=== PATIENT | female | born 1985 ===

== ENCOUNTER → 2018-01-07 | Outpatient (CLI) | payer OTHER | LOC: LAB 15:00 → LAB SHORT 15:00 | PROVIDERS: Nurse Practitioner Family | DX: Z01.419 Encounter for gynecological examination (general) (routine) without abnormal findings (principal) | CPT/HCPCS: 87624; G0145 ==

== ENCOUNTER → 2019-02-01 | Outpatient (CLI) | payer OTHER | LOC: LAB 09:40 → LAB SHORT 09:40 | PROVIDERS: Nurse Practitioner Family | DX: Z01.419 Encounter for gynecological examination (general) (routine) without abnormal findings (principal) | CPT/HCPCS: G0145 ==

== ENCOUNTER → 2021-06-18 | Outpatient (CLI) | payer OTHER ==
[2021-06-19 15:11] LABS: HPV 16 Negative (Negative); HPV 18 Negative (Negative); HPV OTHER HR TYPES Negative (Negative)
== END | disposition home or self-care (01) ==
LOC: LAB SHORT 14:09 → LAB 14:09
PROVIDERS: Obstetrics & Gynecology
DX: Z01.419 Encounter for gynecological examination (general) (routine) without abnormal findings (principal)

== ENCOUNTER → 2021-07-14 | Outpatient (CLI) | payer OTHER ==
[2021-07-16 20:06] LABS: CORONAVIRUS (COVID19) CSH-NRL Positive (Negative)
== END | disposition home or self-care (01) ==
LOC: LAB SHORT 16:18
PROVIDERS: Physician Assistant Medical
DX: Z20.822 Contact with and (suspected) exposure to COVID-19 (principal)
CPT/HCPCS: U0003

== ENCOUNTER → 2021-10-17 | Outpatient (CLI) | payer OTHER ==
[2021-10-18 13:00] LABS: Candida species (DNA Probe) Negative (NEGATIVE); G. vaginalis (DNA Probe) Positive (NEGATIVE); T. vaginalis (DNA Probe) Negative (NEGATIVE)
[2021-10-19 05:11] LABS: CHLAMYDIA TRACHOMATIS, NAA Negative (Negative)
== END | disposition home or self-care (01) ==
LOC: LAB SHORT 16:47 → LAB 16:47
PROVIDERS: Physician Assistant
DX: N94.10 Unspecified dyspareunia (principal)
CPT/HCPCS: 87480; 87491; 87510; 87591; 87660

== ENCOUNTER 2022-07-24 17:52 | Inpatient (IN) | payer OTHER ==
[~2022-07-24] VITALS: Ht 162.6 cm; Wt 56.8 kg
[2022-07-24 19:04] LABS: BASOPHILS ABSOLUTE AUTO 0.03 K/mm3 (0.00-0.23); BASOPHILS PERCENT AUTO 0 % (0-2); EOSINOPHILS ABSOLUTE AUTO 0.09 K/mm3 (0.00-0.68); EOSINOPHILS PERCENT AUTO 1 % (0-6); Hematocrit 37.7 % (33.0-51.0); Hemoglobin 13.5 g/dL (11.5-16.0); IMMATURE GRAN ABSOLUTE AUTO 0.06 K/mm3 (0.00-0.10); IMMATURE GRAN PERCENT AUTO 1 % (0-1); LYMPHOCYTES ABSOLUTE AUTO 1.27 K/mm3 (0.84-5.20); LYMPHOCYTES PERCENT AUTO 17 % (21-46); MONOCYTES ABSOLUTE AUTO 0.53 K/mm3 (0.16-1.47); MONOCYTES PERCENT AUTO 7 % (4-13); Mean Corpuscular HGB 31.8 pg (26.0-34.0); Mean Corpuscular HGB Conc 35.8 g/dL (31.5-36.5); Mean Corpuscular Volume 89 fL (80-100); Mean Platelet Volume 12.7 fL (9.1-12.4); NEUTROPHILS ABSOLUTE AUTO 5.45 K/mm3 (1.96-9.15); NEUTROPHILS PERCENT AUTO 73 % (41-73); Platelet Count 169 K/mm3 (150-400); RDW Coefficient Variation 12.6 % (11.7-14.2); Red Blood Cell Count 4.25 M/mm3 (3.80-5.20); White Blood Cell Count 7.43 K/mm3 (4.00-11.30)
[2022-07-24] MEDS ORDERED: METF500C PO (22:43)
[2022-07-24] MEDS ORDERED: PRENATAL TABLE1 EAC2 PO (22:43)
[2022-07-25 09:15] LABS: Albumin, Blood 2.4 g/dL (3.4-5.0); Albumin/Globulin Ratio 0.6 (0.8-1.8); Bilirubin, Total 0.3 mg/dL (0.1-1.0); Calcium, Blood 8.8 mg/dL (8.5-10.1); Creatinine, Blood 0.65 mg/dL (0.40-1.00); Globulin, Blood 3.9 g/dL (2.2-4.0); Potassium, Blood 3.9 mmol/L (3.5-5.5); Total Protein, Blood 6.3 g/dL (6.4-8.2)
[2022-07-25 10:46] LABS: Protein, Urine Random 150.1 mg/dL (0.0-11.9); Protein/Creat Ratio, Ur Random 1.1
[2022-07-26 14:29] LABS: pH Cord - Arterial 7.23 (7.28-7.35)
[2022-07-26 14:30] LABS: PCO2 Cord - Arterial 50.8 mmHg (40-50); PO2 Cord - Arterial 21.3 mmHg (16-20)
[2022-07-26 14:31] LABS: PCO2 Cord - Venous 49.8 mmHg (40-50); PO2 Cord - Venous 22.3 mmHg (28-32); pH Umbilical Cord - Venous 7.26 (7.26-7.35)
--- NOTE | 2022-07-26 14:44 | NUR ---
07/26/22 1444 Nirmala Gaxiola VIABLE BABY BOY BORN AT 1359
[2022-07-26 16:03] LABS: BASOPHILS ABSOLUTE AUTO 0.04 K/mm3 (0.00-0.23); BASOPHILS PERCENT AUTO 0 % (0-2); EOSINOPHILS PERCENT AUTO 0 % (0-6); Hematocrit 33.2 % (33.0-51.0); Hemoglobin 11.3 g/dL (11.5-16.0); IMMATURE GRAN ABSOLUTE AUTO 0.08 K/mm3 (0.00-0.10); IMMATURE GRAN PERCENT AUTO 0 % (0-1); LYMPHOCYTES PERCENT AUTO 7 % (21-46); MONOCYTES ABSOLUTE AUTO 1.33 K/mm3 (0.16-1.47); MONOCYTES PERCENT AUTO 7 % (4-13); Mean Corpuscular HGB 31.5 pg (26.0-34.0); Mean Corpuscular Volume 93 fL (80-100); Mean Platelet Volume 11.8 fL (9.1-12.4); NEUTROPHILS ABSOLUTE AUTO 16.21 K/mm3 (1.96-9.15); NEUTROPHILS PERCENT AUTO 86 % (41-73); Platelet Count 188 K/mm3 (150-400); RDW Coefficient Variation 12.7 % (11.7-14.2); RDW Standard Deviation 42.5 fL (35.1-46.3); Red Blood Cell Count 3.59 M/mm3 (3.80-5.20); White Blood Cell Count 18.96 K/mm3 (4.00-11.30)
[2022-07-26 16:52] LABS: International Normalized Ratio 0.98; Prothrombin Time Results 10.3 Sec (9.7-11.5)
--- NOTE | 2022-07-26 17:12 | NUR ---
PACU/RAPID RESPONSE 1502 - PT IN PACU. DR. READ AT BEDSIDE. DR. FELICIANO AT BEDSIDE. HR 167 PT APPEARS SLEEPY BUT ABLE TO RESPOND TO VOID AND FOLLOW COMMANDS TO PROJECT MANAGEMENT ADVISOR HAND. PT SHAKY. SEE DOCUMENTED VITAL SIGNS. 1506 - DR. READ OUT OF PACU. DR. FELICIANO OUT OF PACU. 1510 - CHARGE NURSE, FRITZ WALTERS AND DR. FELICIANO ASKED TO COME TO BEDSIDE IN PACU R/T PERSISTENT TACHYCARDIA AND PT ASSESSMENT. 1520 - RAPID RESPONSE CALLED 1520 - PAS IN PLACE, LR ON A PRESSURE BAG. RUNNING. PT PALE, TREMULOUS. NEW IV PLACED 1527 - PT FOLLOWING DIRECTION, OPENS EYES, LABS DRAWN FOR PPH STAGE 3 PROTOCOL 1530 - FRITZ SANDOVAL FROM ICU IN ROOM. WELL DR. COVARRUBIAS, DR. FELICIANO, RICH RT, EILEEN NURSING CLINICAL MARKETING MANAGER. ORDERS RECEIVED FOR STAT PRBC'S. HOLDING ON MAG SULFATE AT THIS TIME. 1536 - DR. FELICIANO ASKED FOR MANUAL BP TAKEN PT BEING TREMULOUS. EILEEN RUNNING EKG MACHINE. 3RD IV PLACED. FRITZ OWENS BROUGHT LABATOLOL TO ROOM PER DR. FELICIANO ORDERS. 1538 - FRITZ SANDOVAL TOOK MANUAL BP 142/100. DR. FELICIANO HOLDING LABATOLOL FOR NOW. 100% O2, 101.0 F TEMP, 22 RR, HR 151 1544 - LR FINISHED. BP CUFF CHANGED TO RADIAL 1545 - NEW LR HUNG PER DR. FELICIANO WITH PRESSURE BAG 1549 - DR. COVARRUBIAS ASKING FOR BLOOD WARMER WITH RAPID INFUSION 1558 - BLOOD STARTED @ 75 ML 1559 - BLOOD INCREASED TO 500 ML BY FRITZ SANDOVAL FROM ICU 1610 - LEGAL PARAPROFESSIONAL DISBANDED
--- NOTE | 2022-07-26 18:55 | NUR ---
DISCHARGED FROM PACU TO ROOM 131 PT NO LONGER TREMULOUS, COLOR IS PINK, CONTINUES TO STAY ON 4L O2 VIA NASAL CANULA, MOBILE TELE MONITOR IN PLACE, PT ABLE TO FOLLOW VERBAL COMMANDS AND CAN VERBALIZE HER PAIN ISSUES AND NEEDS, REPORT TO FRITZ DESAI.
[2022-07-26 19:11] LABS: BASOPHILS ABSOLUTE AUTO 0.03 K/mm3 (0.00-0.23); BASOPHILS PERCENT AUTO 0 % (0-2); EOSINOPHILS PERCENT AUTO 0 % (0-6); Hematocrit 36.6 % (33.0-51.0); IMMATURE GRAN ABSOLUTE AUTO 0.06 K/mm3 (0.00-0.10); IMMATURE GRAN PERCENT AUTO 0 % (0-1); LYMPHOCYTES ABSOLUTE AUTO 0.81 K/mm3 (0.84-5.20); LYMPHOCYTES PERCENT AUTO 5 % (21-46); MONOCYTES ABSOLUTE AUTO 0.78 K/mm3 (0.16-1.47); MONOCYTES PERCENT AUTO 5 % (4-13); Mean Corpuscular HGB 30.9 pg (26.0-34.0); Mean Corpuscular HGB Conc 35.5 g/dL (31.5-36.5); NEUTROPHILS ABSOLUTE AUTO 13.21 K/mm3 (1.96-9.15); NEUTROPHILS PERCENT AUTO 89 % (41-73); Platelet Count 123 K/mm3 (150-400); RDW Standard Deviation 41.1 fL (35.1-46.3); Red Blood Cell Count 4.21 M/mm3 (3.80-5.20); White Blood Cell Count 14.89 K/mm3 (4.00-11.30)
[2022-07-26 19:13] LABS: Mean Corpuscular Volume 87 fL (80-100)
[2022-07-26 20:14] LABS: International Normalized Ratio 1.03; Prothrombin Time Results 10.8 Sec (9.7-11.5)
[2022-07-26 22:31] LABS: BASOPHILS ABSOLUTE AUTO 0.04 K/mm3 (0.00-0.23); BASOPHILS PERCENT AUTO 0 % (0-2); EOSINOPHILS PERCENT AUTO 0 % (0-6); Hematocrit 31.4 % (33.0-51.0); Hemoglobin 11.3 g/dL (11.5-16.0); IMMATURE GRAN ABSOLUTE AUTO 0.06 K/mm3 (0.00-0.10); IMMATURE GRAN PERCENT AUTO 0 % (0-1); LYMPHOCYTES ABSOLUTE AUTO 1.24 K/mm3 (0.84-5.20); LYMPHOCYTES PERCENT AUTO 9 % (21-46); MONOCYTES ABSOLUTE AUTO 1.03 K/mm3 (0.16-1.47); MONOCYTES PERCENT AUTO 7 % (4-13); Mean Corpuscular HGB 31.2 pg (26.0-34.0); Mean Corpuscular Volume 87 fL (80-100); Mean Platelet Volume 11.9 fL (9.1-12.4); NEUTROPHILS ABSOLUTE AUTO 11.95 K/mm3 (1.96-9.15); NEUTROPHILS PERCENT AUTO 83 % (41-73); Platelet Count 118 K/mm3 (150-400); RDW Coefficient Variation 13.1 % (11.7-14.2); RDW Standard Deviation 41.1 fL (35.1-46.3); Red Blood Cell Count 3.62 M/mm3 (3.80-5.20); White Blood Cell Count 14.32 K/mm3 (4.00-11.30)
[2022-07-26 23:00] LABS: Albumin, Blood 1.5 g/dL (3.4-5.0); Albumin/Globulin Ratio 0.5 (0.8-1.8); Bilirubin, Total 0.5 mg/dL (0.1-1.0); Bun/Creatinine Ratio 10.5 (12.0-20.0); Calcium, Blood 7.7 mg/dL (8.5-10.1); Creatinine, Blood 0.76 mg/dL (0.40-1.00); Globulin, Blood 2.8 g/dL (2.2-4.0); Total Protein, Blood 4.3 g/dL (6.4-8.2)
[2022-07-26 23:08] LABS: International Normalized Ratio 1.04; Prothrombin Time Results 10.9 Sec (9.7-11.5)
[2022-07-27 06:27] LABS: BASOPHILS ABSOLUTE AUTO 0.04 K/mm3 (0.00-0.23); BASOPHILS PERCENT AUTO 0 % (0-2); EOSINOPHILS ABSOLUTE AUTO 0.01 K/mm3 (0.00-0.68); EOSINOPHILS PERCENT AUTO 0 % (0-6); Hematocrit 30.1 % (33.0-51.0); Hemoglobin 10.9 g/dL (11.5-16.0); IMMATURE GRAN ABSOLUTE AUTO 0.05 K/mm3 (0.00-0.10); IMMATURE GRAN PERCENT AUTO 0 % (0-1); LYMPHOCYTES ABSOLUTE AUTO 1.43 K/mm3 (0.84-5.20); LYMPHOCYTES PERCENT AUTO 9 % (21-46); MONOCYTES ABSOLUTE AUTO 1.16 K/mm3 (0.16-1.47); MONOCYTES PERCENT AUTO 8 % (4-13); Mean Corpuscular HGB 31.7 pg (26.0-34.0); Mean Corpuscular HGB Conc 36.2 g/dL (31.5-36.5); Mean Corpuscular Volume 88 fL (80-100); Mean Platelet Volume 11.7 fL (9.1-12.4); NEUTROPHILS ABSOLUTE AUTO 12.47 K/mm3 (1.96-9.15); NEUTROPHILS PERCENT AUTO 82 % (41-73); Platelet Count 120 K/mm3 (150-400); RDW Coefficient Variation 13.4 % (11.7-14.2); RDW Standard Deviation 42.6 fL (35.1-46.3); Red Blood Cell Count 3.44 M/mm3 (3.80-5.20); White Blood Cell Count 15.16 K/mm3 (4.00-11.30)
[2022-07-27 06:57] LABS: Albumin, Blood 1.6 g/dL (3.4-5.0); Albumin/Globulin Ratio 0.6 (0.8-1.8); Bilirubin, Total 0.5 mg/dL (0.1-1.0); Bun/Creatinine Ratio 10.6 (12.0-20.0); Creatinine, Blood 0.75 mg/dL (0.40-1.00); Globulin, Blood 2.5 g/dL (2.2-4.0); Potassium, Blood 3.9 mmol/L (3.5-5.5); Total Protein, Blood 4.1 g/dL (6.4-8.2)
--- NOTE | 2022-07-27 23:56 | NUR ---
PROVIDER UPDATE UPDATE TO OF PATIENT'S HEADACHE. PT STATES THAT IT FEELS DIFFERENT FROM OTHER HEADACHES SHE HAS HAD, AND THAT IT MAKES HER FEEL DIZZY WHEN SHE STANDS UP. UPDATED ON PT COMPLAINT OF SPOTS/FLOATERS IN VISIONS. ALSO UPDATED ON EDEMA AND ABDOMINAL PAIN. UPDATED THAT PT STATES IT FEELS LIKE SHE HAS A HARD TIME BREATHING, BUT LUNG SOUNDS ARE CLEAR, PULSE OX 94-95%, AND VS WITHIN NORMAL LIMITS. ORDERS 1 TABLET OF FIORICET NOW FOR POTENTIAL SPINAL HEADACHE. RN TO CALL BACK IF HEADACHE DOES NOT RESOLVE.
[2022-07-28 05:13] LABS: BASOPHILS ABSOLUTE AUTO 0.06 K/mm3 (0.00-0.23); BASOPHILS PERCENT AUTO 0 % (0-2); EOSINOPHILS ABSOLUTE AUTO 0.16 K/mm3 (0.00-0.68); EOSINOPHILS PERCENT AUTO 1 % (0-6); Hematocrit 33.2 % (33.0-51.0); Hemoglobin 11.6 g/dL (11.5-16.0); IMMATURE GRAN ABSOLUTE AUTO 0.14 K/mm3 (0.00-0.10); IMMATURE GRAN PERCENT AUTO 1 % (0-1); LYMPHOCYTES ABSOLUTE AUTO 1.47 K/mm3 (0.84-5.20); LYMPHOCYTES PERCENT AUTO 8 % (21-46); MONOCYTES ABSOLUTE AUTO 1.18 K/mm3 (0.16-1.47); MONOCYTES PERCENT AUTO 6 % (4-13); Mean Corpuscular HGB 30.9 pg (26.0-34.0); Mean Corpuscular HGB Conc 34.9 g/dL (31.5-36.5); Mean Corpuscular Volume 88 fL (80-100); NEUTROPHILS ABSOLUTE AUTO 15.39 K/mm3 (1.96-9.15); NEUTROPHILS PERCENT AUTO 84 % (41-73); Platelet Count 151 K/mm3 (150-400); RDW Coefficient Variation 13.5 % (11.7-14.2); RDW Standard Deviation 43.8 fL (35.1-46.3); Red Blood Cell Count 3.76 M/mm3 (3.80-5.20)
[2022-07-28 05:40] LABS: Albumin, Blood 1.9 g/dL (3.4-5.0); Albumin/Globulin Ratio 0.5 (0.8-1.8); Bilirubin, Total 0.7 mg/dL (0.1-1.0); Bun/Creatinine Ratio 14.2 (12.0-20.0); Calcium, Blood 8.8 mg/dL (8.5-10.1); Creatinine, Blood 0.56 mg/dL (0.40-1.00); Globulin, Blood 3.8 g/dL (2.2-4.0); Potassium, Blood 4.2 mmol/L (3.5-5.5); Total Protein, Blood 5.7 g/dL (6.4-8.2)
--- NOTE | 2022-07-28 17:43 | NUR ---
07/28/221739 CALL TO DR FELICIANO REGARDING PTS VS AND CONTINUED C/O HEADACHE. STATES SHE WILL COME OVER AND ASSESS PT
--- NOTE | 2022-07-29 10:07 | NUR ---
PT STILL VERY SLEEPY THIS MORNING. DENIES NEED FOR PAIN MEDS AT THIS TIME. STATES THEY DID WAKE TO FEED THE BABY AT 09 AND NOW WANTS TO SLEEP AGAIN. WILL CALL IF NEEDING ANYTHING.
--- NOTE | 2022-07-29 12:42 | NUR ---
PT FINALLY AWAKE AND UP AMBULATING IN ROOM. STATES SHE IS FEELING BETTER AND IS READY TO GO HOME THIS AFTERNOON. PAIN WELL CONTROLLED AND LOCHIA SCANT. DENIES DIZZINESS OR HEADACHE.
--- NOTE | 2022-07-29 12:47 | NUR ---
DANAE FROM [employer] CALLED AND UDPATED ON A DEPRESSION SCREEN OF 13 AND WILL BE DOWN TO TALK WITH PATIENT.
--- NOTE | 2022-07-29 14:31 | NUR ---
MANAGER SECONDARY DANAE CAME AND ASSESSED PATIENT FOR A DEPRESSION SCALE OF 13. PT AND SO STATES THEY HAVE A LOT OF SUPPORT AT HOME. PAPERWORK AND INFO GIVEN. MOTHER HAS MOSTLY BEEN SLEEPING ALL DAY AND ALL CARE HAS BEEN DONE BY FOB.
--- NOTE | 2022-07-29 15:47 | NUR ---
CONTINUES TO SLEEP. PT STATES SHE HAS NO COMPLAINTS AND IS FEELING OK. REPORT WILL BE GIVEN TO GRIS HU.
--- NOTE | 2022-07-29 18:51 | NUR ---
D/C PENDING PT GETTING HER SCRIPTS PICKED UP AT PHARMACY. D/C INSTRUCTIONS DISCUSSED AND SIGNED. ASK APPROPRIATE QUESTIONS. HER AND S.O. MERLYN SELF AND NB CARE WELL. PLAN D/C HOME TONIGHT
--- NOTE | 2022-07-29 18:58 | NUR ---
D/C HOME WITH BABY/ .
== END 2022-07-29 19:05 | disposition home or self-care (01) | DRG 784 ==
LOC: OBS 17:52 → BC 17:55 → OBS 18:05 → BC 18:06
PROVIDERS: ADMIT Obstetrics & Gynecology
PROC: 30233N1 Transfusion of Nonautologous Red Blood Cells into Peripheral Vein, Percutaneous Approach (ICD-10-PCS; 2022-07-26)
PROC: 10D00Z1 Extraction of Products of Conception, Low, Open Approach (ICD-10-PCS; principal; 2022-07-26 12:00)
PROC: 0UB70ZZ Excision of Bilateral Fallopian Tubes, Open Approach (ICD-10-PCS; 2022-07-26 12:00)
DX: O24.425 Gestational diabetes mellitus in childbirth, controlled by oral hypoglycemic drugs (principal); O72.1 Other immediate postpartum hemorrhage; Z37.0 Single live birth; O14.94 Unspecified pre-eclampsia, complicating childbirth; O61.9 Failed induction of labor, unspecified; O13.4 Gestational [pregnancy-induced] hypertension without significant proteinuria, complicating childbirth; O75.4 Other complications of obstetric surgery and procedures; R00.0 Tachycardia, unspecified; Z30.2 Encounter for sterilization; Z3A.39 39 weeks gestation of pregnancy; Z90.49 Acquired absence of other specified parts of digestive tract; Z79.84 Long term (current) use of oral hypoglycemic drugs
CPT/HCPCS: 36415; 36416; 36430; 51702; 80053; 82570; 82803; 82947; 84156; 85025; 85384; 85610; 85730; 86850; 86900; 86901; 86923; 88302; 93005; 93010; A9270; J0456; J0690; J1170; J1200; J1720; J1815; J1885; J2001; J2210; J2270; J2370; J2405; J2590; J2765; J3010; J7030; J7050; J7120; P9016

== ENCOUNTER → 2022-08-17 | Outpatient (CLI) | payer OTHER ==
[~2022-08-17] MED LIST: METF500C PO; PRENATAL TABLE1 EAC2 PO
[2022-08-17 16:07] LABS: BASOPHILS ABSOLUTE AUTO 0.03 K/mm3 (0.00-0.23); BASOPHILS PERCENT AUTO 1 % (0-2); EOSINOPHILS ABSOLUTE AUTO 0.17 K/mm3 (0.00-0.68); EOSINOPHILS PERCENT AUTO 4 % (0-6); Hematocrit 36.9 % (33.0-51.0); Hemoglobin 12.7 g/dL (11.5-16.0); IMMATURE GRAN ABSOLUTE AUTO 0.02 K/mm3 (0.00-0.10); IMMATURE GRAN PERCENT AUTO 0 % (0-1); LYMPHOCYTES ABSOLUTE AUTO 1.51 K/mm3 (0.84-5.20); LYMPHOCYTES PERCENT AUTO 32 % (21-46); MONOCYTES PERCENT AUTO 9 % (4-13); Mean Corpuscular HGB 30.5 pg (26.0-34.0); Mean Corpuscular HGB Conc 34.4 g/dL (31.5-36.5); Mean Corpuscular Volume 89 fL (80-100); Mean Platelet Volume 10.2 fL (9.1-12.4); NEUTROPHILS ABSOLUTE AUTO 2.55 K/mm3 (1.96-9.15); NEUTROPHILS PERCENT AUTO 55 % (41-73); Platelet Count 242 K/mm3 (150-400); RDW Coefficient Variation 12.6 % (11.7-14.2); Red Blood Cell Count 4.16 M/mm3 (3.80-5.20); White Blood Cell Count 4.68 K/mm3 (4.00-11.30)
== END | disposition home or self-care (01) ==
LOC: LAB 16:02 → LAB SHORT 16:02
PROVIDERS: Physician Assistant
DX: R53.83 Other fatigue (principal)
CPT/HCPCS: 85025

== ENCOUNTER → 2023-07-16 | Outpatient (CLI) | payer BC ==
[2023-07-16 08:00] LABS: BASOPHILS ABSOLUTE AUTO 0.03 K/mm3 (0.00-0.23); BASOPHILS PERCENT AUTO 1 % (0-2); EOSINOPHILS ABSOLUTE AUTO 0.23 K/mm3 (0.00-0.68); EOSINOPHILS PERCENT AUTO 4 % (0-6); Hematocrit 37.5 % (33.0-51.0); Hemoglobin 12.7 g/dL (11.5-16.0); IMMATURE GRAN ABSOLUTE AUTO 0.01 K/mm3 (0.00-0.10); IMMATURE GRAN PERCENT AUTO 0 % (0-1); LYMPHOCYTES ABSOLUTE AUTO 2.57 K/mm3 (0.84-5.20); LYMPHOCYTES PERCENT AUTO 43 % (21-46); MONOCYTES ABSOLUTE AUTO 0.64 K/mm3 (0.16-1.47); MONOCYTES PERCENT AUTO 11 % (4-13); Mean Corpuscular HGB 30.1 pg (26.0-34.0); Mean Corpuscular HGB Conc 33.9 g/dL (31.5-36.5); Mean Corpuscular Volume 89 fL (80-100); Mean Platelet Volume 10.9 fL (9.1-12.4); NEUTROPHILS ABSOLUTE AUTO 2.52 K/mm3 (1.96-9.15); NEUTROPHILS PERCENT AUTO 42 % (41-73); Platelet Count 231 K/mm3 (150-400); RDW Coefficient Variation 12.1 % (11.7-14.2); Red Blood Cell Count 4.22 M/mm3 (3.80-5.20)
[2023-07-16 08:13] LABS: Albumin/Globulin Ratio 1.1 (0.8-1.8); Bilirubin, Total 0.4 mg/dL (0.1-1.0); Bun/Creatinine Ratio 17.9 (12.0-20.0); Calcium, Blood 9.1 mg/dL (8.5-10.1); Creatinine, Blood 0.67 mg/dL (0.40-1.00); Globulin, Blood 3.6 g/dL (2.2-4.0); Potassium, Blood 3.9 mmol/L (3.5-5.5); Total Protein, Blood 7.6 g/dL (6.4-8.2)
== END ==
LOC: LAB SHORT 07:55 → LAB 07:55
PROVIDERS: Emergency Medicine
DX: R10.9 Unspecified abdominal pain (principal)
CPT/HCPCS: 80053; 83690; 85025